=== PATIENT | female | born 1980 | race Caucasian/White ===

== ENCOUNTER → 2019-06-21 | Outpatient (CLI) | payer BC ==
--- NOTE | 2019-06-21 15:48 | XR ---
EXAMINATION TYPE: XR abdomen 2V DATE OF EXAM: 06/21/2019 3:28 PM CLINICAL HISTORY: Epigastric and generalized abdominal pain TECHNIQUE: Single frontal image of the abdomen is obtained. COMPARISON: None. FINDINGS: Scattered gas is seen in non-distended small bowel loops. Gas and fecal material is seen in non-distended colon. There is no visceromegaly, pneumoperitoneum, or abnormal calcification apprecia brias. The lung bases are clear and the osseous structures are intact. Previously seen midline intraute rine device has been removed. Surgical clip is seen within the right low pelvis. IMPRESSION: Nonobstructive bowel gas pattern.
== END | disposition home or self-care (01) ==
LOC: RADXRYALE 15:16
PROVIDERS: ATTEND Physician Assistant Medical
DX: R14.3 Flatulence (principal)
CPT/HCPCS: 74019

== ENCOUNTER → 2019-07-27 | Outpatient (CLI) | payer BC ==
--- NOTE | 2019-07-27 08:23 | US ---
EXAMINATION TYPE: US abdomen complete DATE OF EXAM: 07/27/2019 COMPARISON: CT dated 07/03/2018 CLINICAL HISTORY: R10.2 pelvic pain. R10.11Right upper Quadrant pain. Patient stated has left flank p ain and bilateral pelvic pain, left greater than right. EXAM MEASUREMENTS: Liver Length: 16.2 cm Gallbladder Wall: 0.2 cm CBD: 0.1 cm Spleen: 10.4 cm Right Kidney: 11.0 x 5.5 x 3.7 cm Left Kidney: 10.2 x 4.7 x 5.9 cm Pancreas: wnl Liver: wnl Gallbladder: wnl Evidence for sonographic Escalona's sign: no CBD: wnl Spleen: wnl Right Kidney: wnl Left Kidney: wnl Upper IVC: wnl Abd Aorta: wnl The liver is homogenous. The intrahepatic portion of the IVC and proximal abdominal aorta are within normal limits. There is no evidence of cholelithiasis. Common bile duct is unremarkable. The visu alized portions of the pancreas are homogenous. The spleen is unremarkable. Kidneys are symmetric a nd free of hydronephrosis. No renal lesions are seen. IMPRESSION: Unremarkable abdominal ultrasound. No hydronephrosis in this patient with left flank pain nor free fluid in this patient with recent appendectomy.
--- NOTE | 2019-07-27 11:17 | US ---
EXAMINATION TYPE: US pelvic complete DATE OF EXAM: 07/27/2019 COMPARISON: NONE CLINICAL HISTORY: R10.2 pelvic pain. R10.11Right upper Quadrant pain. Patient stated has left flank p ain x 2 weeks and intermittent pelvic pain, left greater than right, x 2 months. TECHNIQUE: Transabdominal (TA). Transabdominal sonographic images of the pelvis were acquired; ; on oral contraceptives Date of LMP: 07/24/2019 EXAM MEASUREMENTS: Uterus: 9.0 x 5.2 x 3.7 cm Endometrial Stripe: 0.6 cm Right Ovary: 2.0 x 1.6 x 1.3 cm Left Ovary: 2.6 x 2.2 x 0.9 cm 1. Uterus: Anteverted, multiple small Nabothian cysts in Cervix 2. Endometrium: thickness is wnl for day 3. Right Ovary: small follicles, wnl 4. Left Ovary: small follicles, wnl Spectral, color and waveform Doppler imaging shows good arterial and venous flow within the ovaries ; there is no evidence for ovarian torsion. 5. Bilateral Adnexa: wnl 6. Posterior cul-de-sac: wnl IMPRESSION: Symmetric size of the ovaries demonstrating very small bilateral physiologic follicular c hange. No current sonographic evidence of ovarian torsion. Unremarkable pelvic ultrasound.
== END | disposition home or self-care (01) ==
LOC: RADUSWWP 07:26
PROVIDERS: ATTEND Family Medicine
DX: R10.2 Pelvic and perineal pain (principal); R10.11 Right upper quadrant pain
CPT/HCPCS: 76700; 76856

== ENCOUNTER → 2020-09-22 | Outpatient (CLI) | payer BC ==
--- NOTE | 2020-09-22 13:38 | MM ---
Reason for exam: screening (asymptomatic). Baseline mammogram. Physical Findings: Nurse did not find any significant physical abnormalities on exam. MG Screening Mammo w CAD Bilateral CC and MLO view(s) were taken. There are scattered fibroglandular densities. Asymmetric density posterior central right CC view. Otherwise, no discrete abnormality. These results were verbally communicated with the patient and result sheet given to the patient on 09/22/20. ASSESSMENT: Incomplete: need additional imaging evaluation, BI-RAD 0 RECOMMENDATION: Special view mammogram of the right breast.
--- NOTE | 2020-09-22 13:39 | MM ---
Reason for exam: additional evaluation requested from abnormal screening. Physical Findings: Breast exam preformed at baseline screening. MG Work Up Mamm w CAD RT Spot compression CC, spot compression MLO, and LM view(s) were taken of the right breast. There are scattered fibroglandular densities. The posterior CC asymmetric density does not persist on additional images. These results were verbally communicated with the patient and result sheet given to the patient on 09/22/20. ASSESSMENT: Benign, BI-RAD 2 RECOMMENDATION: Routine screening mammogram of both breasts at age 41.
== END | disposition home or self-care (01) ==
LOC: RADMAMWWP 12:49
PROVIDERS: ATTEND Obstetrics & Gynecology
DX: Z12.31 Encounter for screening mammogram for malignant neoplasm of breast (principal); R92.8 Other abnormal and inconclusive findings on diagnostic imaging of breast
CPT/HCPCS: 77065; 77067

== ENCOUNTER → 2021-12-28 | Outpatient (CLI) | payer BC ==
--- NOTE | 2021-12-30 12:39 | MM ---
Reason for exam: screening (asymptomatic). Last mammogram was performed 1 year and 3 months ago. Physical Findings: A clinical breast exam by your physician is recommended on an annual basis and results should be correlated with mammographic findings. MG 3D Screening Mammo W/Cad Bilateral CC and MLO view(s) were taken. Prior study comparison: September 22, 2020, right breast MG work up mamm w CAD RT. September 22, 2020, bilateral MG screening mammo w CAD. There are scattered fibroglandular densities. No significant changes when compared with prior studies. ASSESSMENT: Benign, BI-RAD 2 RECOMMENDATION: Routine screening mammogram of both breasts in 1 year.
== END | disposition home or self-care (01) ==
LOC: RADMAMWWP 15:01
PROVIDERS: ATTEND Obstetrics & Gynecology
DX: Z12.31 Encounter for screening mammogram for malignant neoplasm of breast (principal)
CPT/HCPCS: 77063; 77067

== ENCOUNTER → 2024-03-30 | Outpatient (CLI) | payer BC ==
--- NOTE | 2024-03-30 18:58 | MM ---
Reason for Exam: Screening (asymptomatic). Last mammogram was performed 1 year(s) and 3 month(s) ago. Patient History: Menarche at age 17. First Full-Term at age 27. Patient has history of breast feeding. Currently using Hormonal Contraceptives, for 8 years. Paternal grandmother had breast cancer at or over age 50. Last menstrual period: 03/07/2016 Risk Values: Iliana 5 year model risk: 0.7%. NCI Lifetime model risk: 10.0%. Prior Study Comparison: 09/22/2020 Right Diagnostic Mammogram, [facility]. 12/28/2021 Bilateral Screening Mammogram, [facility]. 12/29/2022 Bilateral MG 3D screening mammo w/cad, [facility]. Tissue Density: The breasts are heterogeneously dense, which may obscure small masses. Findings: Analyzed By CAD. There is no suspicious group of microcalcifications or new suspicious mass in either breast. Overall Assessment: Negative, BI-RAD 1 Management: Screening Mammogram of both breasts in 1 year. . Patient should continue monthly self-breast exams. A clinical breast exam by your physician is recommended on an annual basis. This exam should not preclude additional follow-up of suspicious palpable abnormalities. Note on Iliana scores and lifetime risk: 1. A Iliana score greater than 3% is considered moderate risk. If this is the case, consider specialist referral to assess eligibility for a risk reducing agent. 2. If overall lifetime risk for the development of breast cancer is 20% or higher, the patient may qualify for future screening with alternating mammogram and breast MRI. Electronically signed and approved by: Ander Nicole M.D. Radiologist
== END | disposition home or self-care (01) ==
LOC: RADMAMWWP 09:26
PROVIDERS: ATTEND Obstetrics & Gynecology
DX: Z12.31 Encounter for screening mammogram for malignant neoplasm of breast (principal); Z80.3 Family history of malignant neoplasm of breast
CPT/HCPCS: 77063; 77067